=== PATIENT | female | born 1935 | race Caucasian/White ===

== ENCOUNTER 2021-08-16 08:47 | Day surgery (SDC) | payer MEDICARE, MEDICAID ==
[2021-08-16 09:26] VITALS: BP 145/74
[2021-08-16] MEDS ORDERED: AMLO10TA PO (09:34)
[2021-08-16] MEDS ORDERED: FERR325T28 PO (09:35)
[2021-08-16] MEDS ORDERED: fentaNYL/PF 50MCG/1 ML 2ML syringe ONE (09:35)
[2021-08-16] MEDS ORDERED: MIDAZolam 1 MG/ML 5ML VIAL ONE (09:35)
[2021-08-16] MEDS ORDERED: diphenhydrAMINE 50 mg/ml inj ONE (09:35)
[2021-08-16] MEDS ORDERED: FLUO-12 PO (09:36)
[2021-08-16] MEDS ORDERED: LOSA50TA3 PO (09:37)
[2021-08-16] MEDS ORDERED: OMEP20CA16 PO (09:38)
[2021-08-16] MEDS ORDERED: POLY17PO10 PO (09:39)
[2021-08-16] MEDS ORDERED: QUET25TA PO (09:39)
[2021-08-16] MEDS ORDERED: OLAN5TAB5 PO (09:40)
[2021-08-16] MEDS ORDERED: SIMV-42 PO (09:40)
[2021-08-16 10:36] VITALS: BP 137/76
[2021-08-16 10:46] VITALS: BP 132/65
[2021-08-16 10:56] VITALS: BP 141/81
[2021-08-16 11:05] VITALS: BP 135/59
== END 2021-08-16 11:10 | disposition home or self-care (01) ==
LOC: GI LAB 08:47
PROVIDERS: ATTEND Internal Medicine Gastroenterology
DX: D50.0 Iron deficiency anemia secondary to blood loss (chronic) (principal); K63.89 Other specified diseases of intestine; K44.9 Diaphragmatic hernia without obstruction or gangrene; K29.50 Unspecified chronic gastritis without bleeding; K29.80 Duodenitis without bleeding; I10 Essential (primary) hypertension; F20.9 Schizophrenia, unspecified; Z79.899 Other long term (current) drug therapy
CPT/HCPCS: 43239; 45378; 88305; 88342; 99153; G0500; J1200; J2250; J3010; J7030; Z7512; 99152; A4620